=== PATIENT | female | born 1955 | race Caucasian/White ===

== ENCOUNTER 2017-12-03 07:54 | Emergency (ER) | payer BC ==
[~2017-12-03] VITALS: Ht 157.5 cm; Wt 69.0 kg
[~2017-12-03 07:54] MED LIST: CELEXA20 MG PO; PERCOCET 5/31 TABLET PO
[2017-12-03 08:32] LABS: BASOPHIL (%) 0.3 % (0-1); BASOPHIL COUNT 0.1 K/uL (0-0.1); EOSINOPHIL (%) 0.1 % (0-5); HEMATOCRIT 40.5 % (36.0-46.0); HEMOGLOBIN 13.5 G/DL (11.9-15.5); IMMATURE GRANULOCYTE (%) 0.4 % (0.0-0.7); LYMPHOCYTE (%) 9.4 % (15-42); LYMPHOCYTE COUNT 1.5 K/uL (1.0-2.8); MCHC 33.3 G/DL (30.0-36.0); MCV 86.9 FL (83-99); MONOCYTE (%) 6.5 % (3-12); MONOCYTE COUNT 1.1 K/uL (0-0.8); NEUTROPHIL (%) 83.3 % (45-76); NEUTROPHIL COUNT 13.4 K/uL (1.8-6.4); PLATELET COUNT 182 K/uL (156-360); RBC DIS.WIDTH-CV 12.9 % (11.8-14.6); RBC DIS.WIDTH-SD 40.8 % (39-53); RED BLOOD COUNT 4.66 M/uL (3.80-5.20); WHITE BLOOD COUNT 16.1 K/uL (4.1-10.2)
[2017-12-03 08:37] LABS: INTER. NORMALIZED RATIO 1.1
[2017-12-03 08:52] LABS: ALBUMIN 4.1 g/dL (3.2-4.8); CHLORIDE 105 mEq/L (99-109); POTASSIUM 3.9 mEq/L (3.7-5.4); SODIUM 138 mEq/L (136-147)
[2017-12-03 08:54] LABS: GLUCOSE 173 mg/dL (70-99)
[2017-12-03 08:55] LABS: TOTAL PROTEIN 6.9 g/dL (6.4-8.3)
[2017-12-03 08:56] LABS: TOTAL BILIRUBIN 0.7 mg/dL (0.0-1.0)
[2017-12-03 08:58] LABS: ALKALINE PHOSPHATASE 70 IU/L (3-129); CREATININE 0.7 mg/dL (0.6-1.3); GFR ESTIMATE (CALCULATED) > 59 mL/min/
[2017-12-03 08:59] LABS: UREA NITROGEN (BUN) 8 mg/dL (9-23)
[2017-12-03 09:00] LABS: AST (GOT) 12 IU/L (2-34)
[2017-12-03 09:01] LABS: ALT (GPT) 12 IU/L (3-49)
[2017-12-03 09:02] LABS: LIPASE 17 U/L (1.0-51.0)
[2017-12-03] MEDS ORDERED: FLAGYL500 MG PO (10:27)
[2017-12-03] MEDS ORDERED: PERCOCET 5/31 TABLET PO (10:27)
[2017-12-03] MEDS ORDERED: CIPRO500 MG PO (10:27)
[2017-12-03 10:41] LABS: APPEARANCE CLEAR ((CLEAR)); BILIRUBIN NEGATIVE; BLOOD NEGATIVE; COLOR YELLOW ((YELLOW)); GLUCOSE (STRIP) NEGATIVE; KETONES NEGATIVE; LEUKOCYTES NEGATIVE; NITRITE NEGATIVE; PROTEIN (STRIP) NEGATIVE; SPECIFIC GRAVITY 1.008 (1.000-1.030); UROBILINOGEN 0.2 MG/DL (0.2-1.0)
[2017-12-03 10:58] VITALS: BP 121/85
== END 2017-12-03 11:00 | disposition home or self-care (01) ==
LOC: EME 07:54
PROVIDERS: Emergency Medicine
DX: K57.32 Diverticulitis of large intestine without perforation or abscess without bleeding (principal); K58.9 Irritable bowel syndrome, unspecified
CPT/HCPCS: 71045; 74177; 80053; 81003; 83690; 85025; 85610; 99281; 99285; J2270; J7030